=== PATIENT | female | born 1980 | race American Indian/Alaskan Native ===

== ENCOUNTER 2017-05-31 13:12 | Emergency (ER) | payer MEDICAID ==
[2017-05-31] MEDS: XYLOCAINE TOPICAL 2% MM ONE ×2 (15:00→18:06)
--- NOTE | 2017-05-31 17:19 | Emergency Department Report ---
Abscess Boil HPI - HPI Chief Complaint: Skin/Abscess/Foreign Body Stated Complaint: ABSCESS ON LEFT NIPPLE Duration: >1 Week (4-5 months ago, got bigger over past 3 weeks) Location: Other (just superior to the left nipple) Severity: Moderate History: Yes Pain, Yes Purulent Drainage, No Fever, No Numbness, No Foreign Body , No Previous History, No Insect Bite HPI: 37 y/o F with no signficant PMHX presents with a "mass" on her left breast. Pt states that she first noticed it 3-4 months ago and then it got bigger over the past 3 weeks. She reports to 8/10 in severity pain. She admits to some oozing, pus, and drainage at the site- redness of the mass. Pt been trying motorin and tylenol for the pain. Pt denies any insect bite, numbness, o tingling. She denies any fever, chills, chest pain, or SOB at this time. She also denies any redness or erythema around the site. LMP was 5 days ago, pt denies UPT at this time. Tetanus UTD 2013. NKDA. Pt is currently on no chronic disease management medications. Home Medications: Home Medications Medication Instructions Recorded Confirmed Last Taken Labetalol [Normodyne] 100 mg PO BID 12/15/13 12/15/13 12/14/13 21:00 Vit No.126/Iron/Folic 1 each PO DAILY 12/15/13 12/15/13 12/14/13 07:00 [Classic Tablet] buPROPion [Wellbutrin] 100 mg PO BID 12/15/13 12/15/13 12/14/13 21:00 Previous Rx's Medication Instructions Recorded Last Taken Type Fluconazole [Diflucan] 150 mg PO DAILY #1 tablet 05/31/17 Unknown Rx Sulfamethoxazole/Trimethoprim 1 each PO BID #20 tablet 05/31/17 Unknown Rx [Bactrim DS TAB] Allergies/Adverse Reactions: Allergies Allergy/AdvReac Type Severity Reaction Status Date / Time No Known Allergies Allergy Verified 05/31/17 13:38 ED Review of Systems ROS: Stated complaint: ABSCESS ON LEFT NIPPLE Other details as noted in HPI Constitutional: denies: chills, fever Eyes: denies: eye pain, eye discharge, vision change ENT: denies: ear pain, throat pain Respiratory: denies: cough, shortness of breath, wheezing Cardiovascular: denies: chest pain, palpitations Gastrointestinal: denies: abdominal pain, nausea, diarrhea Skin: lesions, other (mass/ cyst/ abscess- with pus, oozing, and drainage assciated with pain) Neurological: denies: headache, weakness, paresthesias Psychiatric: denies: anxiety, depression ED Past Medical Hx - Past Medical History Previous Medical History?: Yes Hx Hypertension: Yes Hx Congestive Heart Failure: No Hx Diabetes: No Hx Deep Vein Thrombosis: No Hx Renal Disease: Yes (kidney stones) Hx Sickle Cell Disease: No Hx Seizures: No Hx Asthma: No Hx COPD: No Hx HIV: No - Surgical History Past Surgical History?: No - Social History Smoking Status: Current Every Day Smoker Substance Use Type: Alcohol - Medications Home Medications: Home Medications Medication Instructions Recorded Confirmed Last Taken Type Labetalol [Normodyne] 100 mg PO BID 12/15/13 12/15/13 12/14/13 21:00 History Vit No.126/Iron/Folic 1 each PO DAILY 12/15/13 12/15/13 12/14/13 07:00 History [Classic Tablet] buPROPion [Wellbutrin] 100 mg PO BID 12/15/13 12/15/13 12/14/13 21:00 History Fluconazole [Diflucan] 150 mg PO DAILY #1 tablet 05/31/17 Unknown Rx Sulfamethoxazole/Trimethoprim 1 each PO BID #20 tablet 05/31/17 Unknown Rx [Bactrim DS TAB] ED Abscess Boil Physical Exam - Exam General: Vital signs noted. No distress. Alert and acting appropriately. Size: 2 cm Exam: Yes Tenderness, Yes Fluctuance, Yes Normal Neurologic Exam, Yes Normal Circulation, No Surrounding Cellulites/Erythema, No Lymphangitis, No Crepitation , No Heart Murmur Exam: Yarn Preparation Supervisor and benefits assistant was in room during procedure:There was a 2 cm mass noted just superior to the left nipple, ttp, with mild oozing, pus, and drainage at the site prior to aspiration. A 21 and 18 gauze needle was used to aspirate about 0.5 cc of bloody fluid and the pressure was used to remove another 1 cc of sebaceous material. There was no warmth or swelling noted of the surrounding skin. Cardio and Pulm examinations were unremarkable. Alert and oriented. I & D Note - I & D Note I & D Note: Risks and benefits were explained to patient prior to procedure. Area was numbed with 2% lidiocaine topical cream. First a 21 gauze needle was used to attempt to aspirate bloody fluid which aspirated about 0.5 cc, then an 18 gauze was attempted with this we were able to removed about 1 cc of sebaceous material. The area was then cleaned and sterile gauze was applied. Pt tolerated the procedure well. ED Course Vital Signs 05/31/17 13:39 Temperature 98.1 F Pulse Rate 79 Respiratory 18 Rate Blood Pressure 138/95 O2 Sat by Pulse 100 Oximetry Critical care attestation.: If time is entered above; I have spent that time in minutes in the direct care of this critically ill patient, excluding procedure time. ED Medical Decision Making - Medical Decision Making Pt was examined by myself and Dr. Rubio. This turned out to be a sebaceous cyst that appears to have become infected, we were able to get most of the sebaceous material out successfully. Pt tolerated the procedure well without any complications. She was encouraged to follow-up with the Breast surgeon, she reported verbal understanding that she would. I educated her about the importance. She was given 800 mg of Ibuprofen here in the ed for the pain. She was discharged with Bactrim DS, Diflucan (yeast infection prophylaxsis), and encouraged tylenol OTC for the pain. Pt denies UPT at this time, LMP: 5 days ago. Pt's BP upon discharge was 155/101, I spoke with Dr. Rubio, he states that it is okay to discharge as pt was in alot of pain S/p the procedure , I have educated patient extensively about the importance of monitoring BP and following up with PCP for continued care. She reports verbal understanding. pt denied a hx of HTN, she states that she had gestational HTN and then she had no issues since 3 years when she had her son. Pt denied any chest pain, SOB, left arm pain, jaw pain, headache, or dizziness. Pt was otherwise alert and oriented and in no resp distress- able to speak in full sentences. She was discharged with by her side. ED Disposition Clinical Impression: Sebaceous cyst of breast Qualifiers: Laterality: left Qualified Code(s): N60.82 - Other benign mammary dysplasias of left breast Disposition: DC-01 TO HOME OR SELFCARE Is pt being admited?: No Does the pt Need Aspirin: No Condition: Stable Instructions: Sulfamethoxazole/Trimethoprim (By mouth), Breast Abscess Drainage (ED), Breast Mass (ED) Additional Instructions: Please follow-up with Nerissa Mtz MD [phone] Stover information given in the discharge paperwork; within 2-3 days. This is important as these cysts/masses will continue to reoccur if you do not have specialized care and assistance. Warm compresses to the site will help with some of the at pain and inflammation. Pt educated that it is crucial she follows -up with PCP for HTN it can lead to stroke and heart attacks. Please check BP 2 -3 times a day and show your doctor within 3-5 days. Low salt diet and exercise are important. Please follow-up with PCP within 3-5 DAYS. Please return to the ER immediately if your symptoms present or you have signs of infection such as: fever, chills, redness, or warmth at the site. Prescriptions: Fluconazole [Diflucan] 150 mg PO DAILY #1 tablet Sulfamethoxazole/Trimethoprim [Bactrim DS TAB] 1 each PO BID #20 tablet Referrals: PRIMARY CAREMD [Primary Care Provider] - 3-5 Days RADHA FERRO MD [Referring] - 3-5 Days [facility] [Outside] - 3-5 Days [facility] [Outside] - 3-5 Days GAL STOVER MD [Staff Physician] - 3-5 Days Forms: Accompanied Note, Work/School Release Form(ED)
[2017-05-31] MEDS ORDERED: XYLOCAINE TOPICAL 2% ONE (17:27)
[2017-05-31] MEDS ORDERED: MOTRIN PO ONE (17:54)
[2017-05-31 19:00] VITALS: BP 155/101
== END 2017-05-31 19:13 | disposition home or self-care (01) ==
LOC: ED 13:12
DX: N60.82 Other benign mammary dysplasias of left breast (principal)
CPT/HCPCS: 99282